=== PATIENT | male | born 1995 | race Caucasian/White ===

== ENCOUNTER 2017-06-19 12:14 | Emergency (ER) | payer OTHER ==
[~2017-06-19] VITALS: Ht 190.5 cm; Wt 86.2 kg
[~2017-06-19 12:14] MED LIST: PREDNISONE20 M1 PO; PROAIR HFA8.5 GM INH; ZITHROMAX250 M2 PO
[2017-06-19 12:18] VITALS: BP 130/77
[2017-06-19] MEDS ORDERED: PERMETHRIN60 GM TOP (13:03)
--- NOTE | 2017-06-19 13:05 | ED SKIN/ALLERGY COMPLAINT ---
History of Present Illness General Chief Complaint: Animal/Insect Bite Stated Complaint: ?INSECT BITE Source: patient, family Exam Limitations: no limitations Vital Signs & Intake/Output Vital Signs & Intake/Output Vital Signs Date Time Temp Pulse Resp B/P B/P Pulse O2 O2 Flow FiO2 Mean Ox Delivery Rate 06/19 1218 98.6 77 18 130/77 98 Room Air Allergies Coded Allergies: diphenhydramine (From BENADRYL) (Severe, ANAPHYLAXIS 10/21/16) Reconcile Medications Albuterol Sulfate (Proair Hfa) 90 MCG HFA.AER.AD 2 PUF INH Q4-6 PRN PRN WHEEZING Azithromycin (Zithromax) 250 MG TABLET 1 DP PO AD BRONCHITIS 2 the first day followed by 1 for days 2-5 Permethrin 5 % CREAM..G. 1 ROLANDO TOP ONCE BED BUGS massage into skin from head to soles of feet one time, leave on for 8-14 hours then remove by thorough washing REPEAT IN ONE WEEK IF STILL HAVING SYMPTOMS Prednisone 20 MG TABLET 2 TAB PO DAILY bronchitis Triage Note: 22 YO MALE TO TRIAGE C/O ?INSECT BITES ALL OVER BODY. STATES BITES ARE ITCHY. Triage Nurses Notes Reviewed? yes Onset: Gradual Duration: constant Timing: recent history Severity: severe Severity Numbers: 10 Location: generalized HPI: Patient is a 22-year-old male who presents to emergency room with concerns of bedbug exposure in which she states that for the last 2 days he has been living at his father's house where they had a gradual onset of generalized pruritic raised skin rash. Patient states that adjacent residents have known exposure to bedbugs. Denies any fever chills sore throat difficulty swallowing difficulty breathing tongue swelling lip swelling. Partner has similar symptoms (BETI VANG) Past History Travel History Traveled to [place] past 21 day No Medical History Any Pertinent Medical History? 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 No (BETI VANG) Review of Systems Review of Systems Constitutional: Reports: no symptoms. EENTM: Reports: no symptoms. Respiratory: Reports: no symptoms. Cardiovascular: Reports: no symptoms. GI: Reports: no symptoms. Genitourinary: Reports: no symptoms. Musculoskeletal: Reports: no symptoms. Skin: Reports: see HPI, rash. Neurological/Psychological: Reports: no symptoms. Hematologic/Endocrine: Reports: no symptoms. Immunologic/Allergic: Reports: no symptoms. All Other Systems: Reviewed and Negative (BETI VANG) Physical Exam Physical Exam General Appearance: no apparent distress, alert, comfortable Head: atraumatic Comments: Well-developed well-nourished person in no acute distress HEENT: Normal EENT exam, extraocular motion intact, no nystagmus. Pupils equally round and reactive to light and accommodation. Nose is atraumatic. External auditory canal and Tympanic membranes clear. Pharynx normal. No swelling or edema. Neck: Supple, no lymphadenopathy, normal range of motion without pain or tenderness Back: Nontender, no CVA tenderness. Respiratory: Chest nontender. No respiratory distress.breath sounds clear to auscultation bilaterally Extremity: No edema, no calf tenderness to palpation, normal and equal pulses. Neuro: Alert oriented x3, motor sensory normal, Skin: Noted generalized entire body of raised papules linear clustered rash with multiple excoriations Psych: Mood and affect is normal, memory and judgment is normal. (BETI VANG) Progress Differential Diagnosis: allergic reaction, anaphylaxis, angioedema, contact dermatitis, SCABIES, BED BUGS, LICE Plan of Care: No signs at this time of angioedema or anaphylaxis. Due to history of present illness and positive exposure contacts that patient most likely has bedbugs He was strongly to follow-up with discharge instructions and plan and they will comply (BETI VANG) Departure Departure Disposition: HOME OR SELF CARE Condition: Stable Clinical Impression Primary Impression: Bed bug bite Referrals: PATIENT HAS NO PRIMARY CARE DR (PCP/Family) Additional Instructions: As discussed begin the prescription OF permethrin as directed for your symptoms. Please wash all YOUR CLOTHERS the have been exposed to the suspecting insect bite. Symptoms worsen return to the emergency room. Follow-up to primary care doctor this week if no better. Repeat the permethrin as directed in the prescription. Departure Forms: Customer Survey General Discharge Information Prescriptions: Current Visit Scripts Permethrin 1 ROLANDO TOP ONCE #60 GM Ref 1 massage into skin from head to soles of feet one time, leave on for 8-14 hours then remove by thorough washing REPEAT IN ONE WEEK IF STILL HAVING SYMPTOMS (YOSELIN MICHAEL,BETI) PA/FOREST NURSERY SUPERVISOR Co-Sign Statement Statement: ED Attending supervision documentation- [] I saw and evaluated the patient. I have also reviewed all the pertinent lab results and diagnostic results. I agree with the findings and the plan of care as documented in the PA's/FOREST NURSERY SUPERVISOR's documentation. [X] I have reviewed the ED Record and agree with the PA's/FOREST NURSERY SUPERVISOR's documentation. [] Additions or exceptions (if any) to the PAs/FOREST NURSERY SUPERVISOR's note and plan are summarized below: [] (SCOTTY BLUNT,SORAYA)
== END 2017-06-19 13:16 ==
LOC: ERH 12:14
DX: S20.96XA Insect bite (nonvenomous) of unspecified parts of thorax, initial encounter (principal); W57.XXXA Bitten or stung by nonvenomous insect and other nonvenomous arthropods, initial encounter

== ENCOUNTER 2018-03-11 06:05 | Inpatient (IN) | payer OTHER ==
[~2018-03-11] VITALS: Ht 190.5 cm; Wt 90.7 kg
[~2018-03-11 06:05] MED LIST changes: +CIPRO500 M1 PO; +ERYTHROMYCIN1 GM OPH; +IBUPROFEN800 M1 PO; +KEFLEX500 M1 PO; +PERMETHRIN60 GM TOP
--- NOTE | 2018-03-11 06:20 | ED GENERAL ADULT ---
History of Present Illness General Chief Complaint: Eye Problems Stated Complaint: LT EYE SWOLLEN SHUT DENIES ASSAULT ? STRESS Source: patient Exam Limitations: no limitations Vital Signs & Intake/Output Vital Signs & Intake/Output Vital Signs Date Time Temp Pulse Resp B/P B/P Pulse O2 O2 Flow FiO2 Mean Ox Delivery Rate 03/11 0618 Room Air 03/11 614 97.2 60 18 112/73 96 Room Air Allergies Coded Allergies: diphenhydramine (From BENADRYL) (Severe, ANAPHYLAXIS 10/21/16) Reconcile Medications No Known Home Medications Triage Note: PT TO TRIAGE WITH L EYE SWOLLEN SHUT THAT PT STATES HE NOTICED UPON WAKING UP THIS MORNING. PER PT WAS PICKING AT [facility] YESTERDAY, DENIES GETTING HIT ETC.. Triage Nurses Notes Reviewed? yes Onset: Abrupt Duration: day(s): Timing: recent history HPI: 03/11/18 6:41 AM This is a 23-year-old male who presents to the emergency department for left eyes swelling. According to the patient he was in his usual state of health until last night when he was picking at a skin lesion on his face. This morning he woke up and his left eye was completely shut. He denies fever or other complaints. He denies any significant past medical history. He says that he is highly allergic to Benadryl and that his throat tightens when he takes Benadryl. No visual complaints. (Rogers Dial DO) Past History Travel History Traveled to [place] past 21 day No Medical History Any Pertinent Medical History? 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 No (Rogers Dial DO) Review of Systems Review of Systems Constitutional: Denies: fever. EENTM: Denies: visual changes. Respiratory: Denies: short of breath. Cardiovascular: Denies: chest pain. GI: Denies: abdominal pain. Genitourinary: Reports: no symptoms. Musculoskeletal: Reports: no symptoms. Skin: Reports: rash. Neurological/Psychological: Reports: no symptoms. Hematologic/Endocrine: Reports: no symptoms. Immunologic/Allergic: Reports: no symptoms. (Rogers Dial DO) Physical Exam Physical Exam General Appearance: awake, anxious, mild distress Head: swelling Eyes: Bilateral: PERRL, EOMI. Ears, Nose, Throat: normal pharynx Neck: supple, full range of motion Respiratory: no respiratory distress Cardiovascular: regular rate/rhythm Peripheral Pulses: 4+ radial (R), 4+ radial (L) Gastrointestinal: non-tender Back: normal range of motion Extremities: no edema Neurologic/Psych: no motor/sensory deficits, awake, alert, oriented x 3 Skin: rash Comments: The patient has a honey colored pustular rash on the left forehead and periorbital area. There is significant swelling to the left eyelid. Opening of the eyelid manually reveals a normal left eye. The extraocular muscles are intact. He denies any loss in visual acuity. Core Measures ACS in differential dx? No CVA/TIA Diagnosis: No Sepsis Present: No Sepsis Focused Exam Completed? No (Rogers Dial DO) Progress Differential Diagnoses I considered the following diagnoses in my evaluation of the patient: Periorbital, orbital cellulitis, abscess] Plan of Care: Orders Procedure Date/time Status Regular Diet 03/11 L Active ED Holding Orders 03/11 0855 Active Admit to inpatient 03/11 0855 Active Vital Signs 03/11 0855 Active Code Status 03/11 0855 Active Saline Lock 03/11 0630 Active COMPREHENSIVE METABOLIC PANEL 03/11 0630 Complete CBC WITHOUT DIFFERENTIAL 03/11 0630 Complete Current Medications Sig/Carmelo Start time Last Medication Dose Stop Time Status Admin Clindamycin 600 MG IQ8 03/11 0800 UNVr 03/11 (Cleocin) 0650 Dextrose/Water 50 ML (D5W) Laboratory Tests 03/11/18 0646: Anion Gap 12, Estimated GFR > 60, BUN/Creatinine Ratio 17.8, Glucose 94, Calcium 9.6, Total Bilirubin 0.7, AST 19, ALT 21, Alkaline Phosphatase 55, Total Protein 7.5, Albumin 4.8, Globulin 2.7, Albumin/Globulin Ratio 1.8, CBC w Diff NO MAN DIFF REQ, RBC 5.22, MCV 87.6, MCH 30.3, MCHC 34.6, RDW 12.7, MPV 7.6, Gran % 80.3 H, Lymphocytes % 11.2 L, Monocytes % 6.8, Eosinophils % 1.1, Basophils % 0.6, Absolute Granulocytes 12.4 H, Absolute Lymphocytes 1.7, Absolute Monocytes 1.1 H, Absolute Eosinophils 0.2, Absolute Basophils 0.1 Initial ED EKG: none (Rogers Dial DO) Diagnostic Imaging: Viewed by Me: CT Scan. Discussed w/RAD: CT Scan. Radiology Impression: PATIENT: LEIDA BATEMAN JR PRESENT AGE: 23 PATIENT ACCOUNT NO: [id number] : 93 LOCATION: [facility] ORDERING PHYSICIAN: Rogers Dial DO SERVICE DATE: 03/11/18 EXAM TYPE: CAT - CT ORBITS WO IV CONTRAST EXAMINATION: CT ORBIT WITHOUT CONTRAST CLINICAL INFORMATION: Left periorbital cellulitis COMPARISON: Head CT 01/18/2011 TECHNIQUE: Multidetector volumetric imaging of the orbits was performed without IV contrast. Coronal and sagittal reformatted images were obtained and reviewed. DLP: 267 mGy-cm FINDINGS: There is prominent left periorbital soft tissue swelling, extending along the left frontal bone region. There is no inflammation in the retrobulbar fat. No post septal inflammation. The globes are intact and symmetric. Extraocular muscles are intact. No maxillofacial fracture. The pterygoid plates are intact. The lamina papyracea are intact. The zygomatic arches are intact. The orbital rims are intact. The temporal mandibular joints are appropriately aligned. The paranasal sinuses are well aerated. There is rightward deviation of the nasal septum. The mastoid air cells are well aerated. The visualized intracranial structures are unremarkable. IMPRESSION: Prominent left periorbital soft tissue swelling. There is no extension of inflammation into the post septal or retrobulbar fat. The orbit is maintained. DICTATED BY: Rosales Ovalle MD DATE/TIME DICTATED:03/11/18652 PATTERN WEAVER: DIANA DATE/TIME TRANSCRIBED:03/11/18652 CONFIDENTIAL, DO NOT COPY WITHOUT APPROPRIATE AUTHORIZATION. <Electronically signed in Other Vendor System> SIGNED BY: Rosales Ovalle MD 03/11/18 0658 (Autumn BLUNT,Nish Ortiz) Departure Departure Disposition: STILL A PATIENT Condition: Stable Clinical Impression Primary Impression: Periorbital cellulitis Secondary Impressions: Periorbital cellulitis of left eye Referrals: Patient Has No Primary Care Dr (PCP/Family) Departure Forms: Customer Survey General Discharge Information Prescriptions: Current Visit Scripts No Known Home Medications Comments 03/11/18 Patient signed out to Dr. Leyva at 7 AM (Rogers Dial DO) Admission Note Spoke With: David BLUNT,Krysta Documentation of Exam: Documentation of any treatments & extenuating circumstances including Concerns Regarding Discharge (functional status, medication knowledge or non-compliance, living conditions, etc.) that warrant an admission rather than observation: [IV antibiotics, consider optimal consult if symptoms worsen, high risk to develop orbital cellulitis if he is discharged shortly.] (Autumn BLUNT,Nish Ortiz) Critical Care Note Critical Care Note Critical Care Time: non-applicable (Rogers Dial DO)
[2018-03-11 06:58] LABS: ABSOLUTE BASOPHIL COUNT 0.1 /CUMM (0.0-0.2); ABSOLUTE EOSINOPHIL COUNT 0.2 /CUMM (0.0-0.7); ABSOLUTE GRANULOCYTE CT 12.4 /CUMM (1.4-6.5); ABSOLUTE LYMPH COUNT 1.7 /CUMM (1.2-3.4); ABSOLUTE MONOCYTE COUNT 1.1 /CUMM (0.10-0.60); BASOPHIL % 0.6 % (0.0-2.0); EOSINOPHIL % 1.1 % (0-5); GRANULOCYTE % 80.3 % (42.2-75.2); HEMATOCRIT 45.8 % (42-52); MEAN CORPUSCULAR HGB 30.3 PG (27.0-31.0); MEAN CORPUSCULAR HGB CONC 34.6 G/DL (33.0-37.0); MEAN CORPUSCULAR VOLUME 87.6 FL (80.0-94.0); MEAN PLATELET VOLUME 7.6 FL (7.4-10.4); PLATELET COUNT 265 /CUMM (130-400); RBC DISTRIBUTION WIDTH 12.7 % (11.5-14.5); RED BLOOD CELL CT 5.22 /CUMM (4.70-6.10); WHITE BLOOD CELL COUNT 15.5 /CUMM (4.8-10.8)
--- NOTE | 2018-03-11 06:58 | CT SCAN REPORT ---
EXAMINATION: CT ORBIT WITHOUT CONTRAST CLINICAL INFORMATION: Left periorbital cellulitis COMPARISON: Head CT 01/18/2011 TECHNIQUE: Multidetector volumetric imaging of the orbits was performed without IV contrast. Coronal and sagittal reformatted images were obtained and reviewed. DLP: 267 mGy-cm FINDINGS: There is prominent left periorbital soft tissue swelling, extending along the left frontal bone region. There is no inflammation in the retrobulbar fat. No post septal inflammation. The globes are intact and symmetric. Extraocular muscles are intact. No maxillofacial fracture. The pterygoid plates are intact. The lamina papyracea are intact. The zygomatic arches are intact. The orbital rims are intact. The temporal mandibular joints are appropriately aligned. The paranasal sinuses are well aerated. There is rightward deviation of the nasal septum. The mastoid air cells are well aerated. The visualized intracranial structures are unremarkable. IMPRESSION: Prominent left periorbital soft tissue swelling. There is no extension of inflammation into the post septal or retrobulbar fat. The orbit is maintained.
--- NOTE | 2018-03-11 08:57 | History & Physical ---
Bryan Leigh 03/11/18 0857: General Information and HPI MD Statement: I have seen and personally examined LEIDA BATEMAN and documented this H&P. The patient is a 23 year old M who presented with a patient stated chief complaint of left eye swelling. Source of Information: patient Exam Limitations: no limitations History of Present Illness: 23 year old gentlemen current smoker (7 pack years) and marijuana user, no significant past medical history, not regular medications, came to ED for evaluation of left eye swelling of one day duration. Patient was in his usual health day before yesterday. He has been moving into a new place since the past 3-4 days. He noticed a slight erythematous rash on the left temporal aspect of his forehead yesterday and this morning when he woke up P found that his left eye was swollen shut and he was unable to open them. Endorses pain on palpation. He denies any vision loss, recent tooth or ear infection, trauma, insect bites, recent travel, fever, chills, previous similar episodes,IVDU, headaches or pain on moving the eyes. He moved into the new place yesterday and slept on his own sheets in own bed. States that there are no insects as spiders that he noticed where he was staying at. 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 Home Smoking Status: Current Everyday Smoker ETOH Use: denies use Employment History Employment Employed Review of Systems Review of Systems Constitutional: Denies: chills, diaphoresis, fever, malaise, weakness, unexplained weight loss. Cardiovascular: Denies: chest pain, edema, orthopena, palpitations, peripheral edema, syncope. Respiratory: Denies: cough, hemoptysis, orthopnea, short of breath, sputum production, stridor, wheezing. GI: Denies: abdominal pain, bloating, constipation, diarrhea, distention, bowel incontinence, melena, nausea, bloody stool, changes in stool, vomiting, steatorrhea. Genitourinary: Denies: discharge, dysuria, frequency, hematuria, hesitation, nocturia, pain, urgency. Exam & Diagnostic Data Last 24 Hrs of Vital Signs/I&O Vital Signs Date Time Temp Pulse Resp B/P B/P Pulse O2 O2 Flow FiO2 Mean Ox Delivery Rate 03/11 1358 98.5 63 20 120/80 99 03/11 1100 97.6 64 20 120/70 96 Room Air 03/11 1013 97.6 72 18 127/67 97 Room Air 03/11 0618 Room Air 03/11 0614 97.2 60 18 112/73 96 Room Air Intake & Output 03/11 1600 03/11 0800 03/11 0000 Intake Total 500 0 Output Total Balance 500 0 Intake, Oral 500 0 Patient 200 lb 200 lb Weight Weight Reported by Patient Measurement Method Physical Exam General Appearance Alert, Oriented X3, Cooperative, No Acute Distress Skin non raised erthymatous rash on left temporal region Skin Temp/Moisture Exam: Warm/Dry Sepsis Skin Exam (color): Normal for Ethnicity HEENT Atraumatic, EOMI, prominent left eye swelling, mild increased warmth noted Neck Supple Lymphatic Cervical nl Cardiovascular Regular Rate, Normal S1, Normal S2 Lungs Clear to Auscultation Abdomen Normal Bowel Sounds, Soft, No Tenderness Extremities No Edema Diagnostic Data Other Results CT ORBITS WO IV CONTRAST FINDINGS: There is prominent left periorbital soft tissue swelling, extending along the left frontal bone region. There is no inflammation in the retrobulbar fat. No post septal inflammation. The globes are intact and symmetric. Extraocular muscles are intact. No maxillofacial fracture. The pterygoid plates are intact. The lamina papyracea are intact. The zygomatic arches are intact. The orbital rims are intact. The temporal mandibular joints are appropriately aligned. The paranasal sinuses are well aerated. There is rightward deviation of the nasal septum. The mastoid air cells are well aerated. The visualized intracranial structures are unremarkable. IMPRESSION: Prominent left periorbital soft tissue swelling. There is no extension of inflammation into the post septal or retrobulbar fat. The orbit is maintained. Assessment/Plan Assessment: 23 year old gentlemen current smoker (7 pack years) and marijuana user, no significant past medical history, not regular medications, here for left eye swelling. Assessment: Likely preseptal orbital cellulitis based on imaging as well as ROS neg for vision loss, pain on eye movement. Problem list: Preseptal orbital cellulitis Smoking Plan: Admit to general medicine floor, vitals per protocol Continue with clindamycin pending blood cultures, if no improvement noted over 24 hours can broaden coverage to vancomycin and ceftriaxone Nicotine patch Pain control with Tylenol for mild pain and tramadol for moderate Regular diet DVT prophylaxis with subcutaneous Lovenox Full code As Ranked By This Provider Problem List: 1. Periorbital cellulitis of left eye Core Measures/Misc (08/07) Acute Coronary Syndrome ACS Diagnosis: No Congestive Heart Failure Congestive Heart Failure Diagnosis No Cerebrovascular Accident CVA/TIA Diagnosis: No VTE (View Protocol) VTE Risk Factors Smoker No Mechanical VTE Prophylaxis d/t N/A MechProphylax Ordered No VTE Pharm Prophylaxis d/t NA PharmProphylax ordered Sepsis (View protocol) Sepsis Present: No Krysta Hernandez MD 03/11/18 1451: Attending MD Review Statement Attending Statement Attending MD Statement: examined this patient, discuss w/resident/PA/RADIOTELEGRAPHER, agreed w/resident/PA/RADIOTELEGRAPHER, reviewed EMR data (avail), discussed with nursing, reviewed images, amended to note Attending Assessment/Plan: 23-year-old male with past medical history significant for migraine headaches, ADHD who presented with left eye swelling and some erythema. Patient claims that there was a pimple above the left eyebrow that he noticed yesterday and then overnight his eye got swollen. This morning his eye was shut and he wasn't able to open the eye. It is also painful to touch. Patient denies any effect on his vision. He denies any fevers or chills. In the emergency room his CAT scan of the head and orbit shows Prominent left periorbital soft tissue swelling. There is no extension of inflammation into the post septal or retrobulbar fat. The orbit is maintained. Patient received clindamycin in the emergency room. Vital Signs Date Time Temp Pulse Resp B/P B/P Pulse O2 O2 Flow FiO2 Mean Ox Delivery Rate 03/11 1358 98.5 63 20 120/80 99 03/11 1100 97.6 64 20 120/70 96 Room Air 03/11 1013 97.6 72 18 127/67 97 Room Air 03/11 0618 Room Air 03/11 0614 97.2 60 18 112/73 96 Room Air on exam; aox3, nad. heent; left eye with sever swelling, above the left eye [place] there is some discoloration of skin with darkening, Mild erythema also. cv; s1,s2, rrr resp; clear abd; soft, nt, bs+ ext; no edema Laboratory Tests 03/11 0646 Chemistry Sodium (137 - 145 mmol/L) 140 Potassium (3.5 - 5.1 mmol/L) 3.7 Chloride (98 - 107 mmol/L) 103 Carbon Dioxide (22 - 30 mmol/L) 26 Anion Gap (5 - 16) 12 BUN (9 - 20 mg/dL) 16 Creatinine (0.7 - 1.2 mg/dL) 0.9 Estimated GFR (>60 ml/min) > 60 BUN/Creatinine Ratio (7 - 25 %) 17.8 Glucose (65 - 99 mg/dL) 94 Calcium (8.4 - 10.2 mg/dL) 9.6 Total Bilirubin (0.2 - 1.3 mg/dL) 0.7 AST (17 - 59 U/L) 19 ALT (21 - 72 U/L) 21 Alkaline Phosphatase (< 127 U/L) 55 Total Protein (6.3 - 8.2 g/dL) 7.5 Albumin (3.5 - 5.0 g/dL) 4.8 Globulin (1.9 - 4.2 gm/dL) 2.7 Albumin/Globulin Ratio (1.1 - 2.2 %) 1.8 Hematology CBC w Diff NO MAN DIFF REQ WBC (4.8 - 10.8 /CUMM) 15.5 H RBC (4.70 - 6.10 /CUMM) 5.22 Hgb (14.0 - 18.0 G/DL) 15.8 Hct (42 - 52 %) 45.8 MCV (80.0 - 94.0 FL) 87.6 MCH (27.0 - 31.0 PG) 30.3 MCHC (33.0 - 37.0 G/DL) 34.6 RDW (11.5 - 14.5 %) 12.7 Plt Count (130 - 400 /CUMM) 265 MPV (7.4 - 10.4 FL) 7.6 Gran % (42.2 - 75.2 %) 80.3 H Lymphocytes % (20.5 - 51.1 %) 11.2 L Monocytes % (1.7 - 9.3 %) 6.8 Eosinophils % (0 - 5 %) 1.1 Basophils % (0.0 - 2.0 %) 0.6 Absolute Granulocytes (1.4 - 6.5 /CUMM) 12.4 H Absolute Lymphocytes (1.2 - 3.4 /CUMM) 1.7 Absolute Monocytes (0.10 - 0.60 /CUMM) 1.1 H Absolute Eosinophils (0.0 - 0.7 /CUMM) 0.2 Absolute Basophils (0.0 - 0.2 /CUMM) 0.1 CT head and orbit: Prominent left periorbital soft tissue swelling. There is no extension of inflammation into the post septal or retrobulbar fat. The orbit is maintained. A/P; 23-year-old male with past history significant for migraine headaches, ADHD who is admitted with periorbital cellulitis. We will follow-up on the blood cultures. Patient was given clindamycin in the emergency room which we can continue for now. Pain controlled with Tylenol or ibuprofen. DVT px: Lovenox. Patient is a full code. Elizabeth Muniz MD,[facility] 03/11/18 1808: Addendum Note Addendum At 6 pm, nursing called patient wants to leave AMA Patient was admitted with preseptal cellutlits, planned to recieve IV antibiotics Explained the critical condition to patient, that could lead to loosing his eye, patient noted to be anxious, wanted to smoke. Nicotin replacement offered, xanax 0.5 mg administered for anxiety
[2018-03-11 11:00] VITALS: BP 120/70
[2018-03-11 13:58] VITALS: BP 120/80
[2018-03-11 22:15] VITALS: BP 110/66
[2018-03-12 06:20] VITALS: BP 110/58
--- NOTE | 2018-03-12 07:32 | PN- Housestaff ---
Elizabeth Muniz MD,Ami 03/12/18 0732: Subjective Follow-up For: preorbital cellulitis Subjective: Patient visited today, improved swelling of the left eye. patient stable to be discahrged on oral antibiotics Review of Systems Constitutional: Reports: see HPI. Objective Last 24 Hrs of Vital Signs/I&O Vital Signs Date Time Temp Pulse Resp B/P B/P Pulse O2 O2 Flow FiO2 Mean Ox Delivery Rate 03/12 06 98.7 51 18 110/58 95 Room Air 03/11 2215 98.5 50 18 110/66 96 Room Air 03/11 1358 98.5 63 20 120/80 99 Intake & Output 03/12 1600 03/12 0800 03/12 0000 Intake Total 100 200 Output Total Balance 100 200 Intake, Oral 100 200 Physical Exam General Appearance: Alert, Oriented X3, Cooperative, No Acute Distress Skin Temp/Moisture Exam: Warm/Dry Sepsis Skin Exam (color): Normal for Ethnicity HEENT: Atraumatic, LEft eye, swelling, improved, IOP no pain Cardiovascular: Normal S1, Normal S2 Lungs: Clear to Auscultation, Normal Air Movement Abdomen: Soft, No Tenderness Current Medications: Current Medications Sig/Carmelo Start time Last Medication Dose Route Stop Time Status Admin Acetaminophen 650 MG Q4P PRN 03/11 1545 AC 03/11 PO 2108 Alprazolam 0.5 MG ONCE ONE 03/11 1815 DC 03/11 PO 03/11 1816 1824 Ceftriaxone Sodium 2,000 MG DAILY@1200 03/11 1200 DC 03/11 IV 1136 Clindamycin 600 MG IQ8 03/12 0800 AC 03/12 Dextrose/Water 50 ML IV 0929 Enoxaparin Sodium 40 MG DAILY 03/12 0900 AC SC Melatonin 5 MG AT BEDTIME 03/11 2100 AC 03/11 PO 2106 Nicotine 21 MG DAILY 03/11 1055 AC 03/11 TOP 1135 Tramadol HCl 50 MG Q6 03/11 1200 AC 03/12 PO 0644 Vancomycin HCl 1,000 MG Q12H 03/11 1200 DC Dextrose/Water 250 ML IV Vancomycin HCl 1,000 MG Q12H 03/11 1130 DC 03/11 Sodium Chloride 250 ML IV 1141 Last 24 Hrs of Lab/Dakota Results Last 24 Hrs of Labs/Mics: Laboratory Tests 03/12/18 0800: Anion Gap 12, Estimated GFR > 60, BUN/Creatinine Ratio 12.0, CBC w Diff NO MAN DIFF REQ, RBC 5.18, MCV 88.3, MCH 30.1, MCHC 34.1, RDW 13.1, MPV 8.1, Gran % 54.0, Lymphocytes % 30.7, Monocytes % 9.5 H, Eosinophils % 5.1 H, Basophils % 0.7, Absolute Granulocytes 3.4, Absolute Lymphocytes 2.0, Absolute Monocytes 0.6 , Absolute Eosinophils 0.3, Absolute Basophils 0 Microbiology 03/11 1545 BLOOD: Blood Culture - RECD 03/11 152 BLOOD: Blood Culture - RECD Assessment/Plan Assessment: 23 year old gentlemen current smoker (7 pack years) and marijuana user, no significant past medical history, not regular medications, here for left eye swelling. Assessment: Likely preseptal orbital cellulitis based on imaging as well as ROS neg for vision loss, pain on eye movement. Patient was admitted to general medicine floor, IV antibiotic treatment with vancomycin was administered. Blood cultures remain to be negative. There was significant improvement in patient's swelling erythema and pain. Patient was considered to be stable to be discharged. Oral clindamycin was administered to complete 7 day course. Problem List: 1. Periorbital cellulitis Pain Ratin Pain Location: None Pain Goal: Pain 4 or less Pain Plan: Tynelol PRN after discharge Tomorrow's Labs & Rationales: None Krytsa Hernandez MD 03/12/18 1214: Attending MD Review Statement Attending Statement Attending MD Statement: examined this patient, discuss w/resident/PA/COTTON BALL BAGGER, agreed w/resident/PA/COTTON BALL BAGGER, discussed with family, reviewed EMR data (avail), discussed with nursing, discussed with case mgmt, reviewed images, amended to note Attending Assessment/Plan: Patient seen and examined, overall doing much better. The left eye is much less swollen and he is able to open the eye without any problem. Denies any difficulty with vision. Patient remained afebrile. Blood cultures so far remain negative. Patient was started on IV clindamycin and seemed that that he had responded well. Patient wants to go home. Clinically he has improved therefore we can switch his antibiotics to oral. Patient will be discharged home on oral clindamycin to complete a total of seven-day course. He should follow-up with his primary care doctor as an outpatient.
[2018-03-12 09:17] LABS: ABSOLUTE BASOPHIL COUNT 0 /CUMM (0.0-0.2); ABSOLUTE EOSINOPHIL COUNT 0.3 /CUMM (0.0-0.7); ABSOLUTE GRANULOCYTE CT 3.4 /CUMM (1.4-6.5); ABSOLUTE MONOCYTE COUNT 0.6 /CUMM (0.10-0.60); BASOPHIL % 0.7 % (0.0-2.0); EOSINOPHIL % 5.1 % (0-5); HEMATOCRIT 45.7 % (42-52); MEAN CORPUSCULAR HGB 30.1 PG (27.0-31.0); MEAN CORPUSCULAR HGB CONC 34.1 G/DL (33.0-37.0); MEAN CORPUSCULAR VOLUME 88.3 FL (80.0-94.0); MEAN PLATELET VOLUME 8.1 FL (7.4-10.4); PLATELET COUNT 243 /CUMM (130-400); RBC DISTRIBUTION WIDTH 13.1 % (11.5-14.5); RED BLOOD CELL CT 5.18 /CUMM (4.70-6.10)
[2018-03-12 10:04] LABS: WHITE BLOOD CELL COUNT 6.4 /CUMM (4.8-10.8)
--- NOTE | 2018-03-12 11:59 | Discharge Summary ---
Hospital Course Allergies: Coded Allergies: diphenhydramine (From BENADRYL) (Severe, ANAPHYLAXIS 10/21/16)
--- NOTE | 2018-03-12 12:03 | Patient Discharge Instructions ---
Discharge Instructions General Discharge Information You were seen/treated for: Periorbital cellulitis Watch for these problems: Increased swelling, pain, erythema, fever, or worsening of any other symptoms. Please also note for any change in your ability to see Special Instructions: Please follow with your PCP within one week of discharge. Please complete the course of antibiotics. Please come back to hospital if symptoms worsen Diet Continue normal diet: Yes Activity Full Activity/No Limits: No Activity Self Limited: Yes Acute Coronary Syndrome Inclusion Criteria At DC or during hospital stay patient has or had the following: ACS DIAGNOSIS No Discharge Core Measures Meds if any: Prescribed or Continued at Discharge Meds if any: NOT Prescribed or Continued at Discharge Congestive Heart Failure Inclusion Criteria At DC or during hospital stay patient has or had the following: CHF DIAGNOSIS No Discharge Core Measures Meds if any: Prescribed or Continued at Discharge Meds if any: NOT Prescribed or Continued at Discharge Cerebrovascular accident Inclusion Criteria At DC or during hospital stay patient has or had the following: CVA/TIA Diagnosis No Discharge Core Measures Meds if any: Prescribed or Continued at Discharge Antithrombotic No Statin (required if LDL =>70) No Meds if any: NOT Prescribed or Continued at Discharge Venous thromboembolism Inclusion Criteria VTE Diagnosis No VTE Type NONE VTE Confirmed by (Test) NONE Discharge Core Measures - Per Current guidelines, there needs to be overlap - treatment for the first 5 days of Warfarin therapy. - If discharged on Warfarin prior to 5 days of - overlap therapy, the patient will need to be - assessed for post discharge needs including - *Post discharge parental anticoagulation - *Warfarin and/or parental anticoagulation education - *Follow up date to check INR post discharge At least 5 days overlap therapy as Inpatient No Meds if any: Prescribed or Continued at Discharge Note: Overlap Therapy is Warfarin and Anticoagulant Meds if any: NOT Prescribed or Continued at Discharge
[2018-03-12] MEDS ORDERED: CLINDAMYCIN HC300 M1 PO (12:04)
[2018-03-12] MEDS ORDERED: PROBIOTIC1 EACH PO (12:06)
== END 2018-03-12 12:30 | DRG 383 ==
LOC: ERH 06:05 → ERHI 08:55 → ENRESERV 09:50 → ENTRNSPT 10:32 → EDTRNSPTSTS 10:33 → EDTRNSPT 10:33 → 2NA 10:57 → CMPTRNSPT 11:03 → ENPENDDIS 03-12 12:06 → 2NA 03-12 12:30
PROVIDERS: Emergency Medicine; Internal Medicine
DX: L03.213 Periorbital cellulitis (principal); F17.200 Nicotine dependence, unspecified, uncomplicated; F12.90 Cannabis use, unspecified, uncomplicated; F90.9 Attention-deficit hyperactivity disorder, unspecified type; G43.909 Migraine, unspecified, not intractable, without status migrainosus; F41.9 Anxiety disorder, unspecified
CPT/HCPCS: 2NAP; 36592; 82436; 87040; J0696; J1650; J3370; J7040; J7060

== ENCOUNTER 2018-03-27 09:40 | Emergency (ER) | payer OTHER ==
[~2018-03-27] VITALS: Ht 190.5 cm; Wt 90.7 kg
[~2018-03-27 09:40] MED LIST changes: +CLINDAMYCIN HC300 M1 PO; +PROBIOTIC1 EACH PO
[2018-03-27 09:49] VITALS: BP 147/94
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
== END 2018-03-27 12:51 | disposition admitted as inpatient to this hospital (09) ==
LOC: ERH 09:40
DX: J02.9 Acute pharyngitis, unspecified (principal)
CPT/HCPCS: 99281

== ENCOUNTER 2018-03-27 14:21 | Emergency (ER) | payer OTHER ==
[~2018-03-27] VITALS: Ht 190.5 cm; Wt 90.7 kg
[2018-03-27 14:48] VITALS: BP 137/91
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
[2018-06-02] MEDS ORDERED: AUGMENTIN 875-1 EACH PO (23:49)
[2018-06-03] MEDS ORDERED: NARCAN4 MG NAS (02:25)
== END 2018-03-27 15:34 ==
LOC: ERH 14:21
DX: J02.9 Acute pharyngitis, unspecified (principal); F17.210 Nicotine dependence, cigarettes, uncomplicated
CPT/HCPCS: J1100

== ENCOUNTER 2018-05-18 23:09 | Emergency (ER) | payer OTHER ==
[~2018-05-18] VITALS: Ht 188 cm; Wt 90.7 kg
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
[2018-05-19 00:50] LABS: ABSOLUTE BASOPHIL COUNT 0 /CUMM (0.0-0.2); ABSOLUTE EOSINOPHIL COUNT 0.1 /CUMM (0.0-0.7); ABSOLUTE GRANULOCYTE CT 8.2 /CUMM (1.4-6.5); ABSOLUTE LYMPH COUNT 1.8 /CUMM (1.2-3.4); ABSOLUTE MONOCYTE COUNT 0.8 /CUMM (0.10-0.60); BASOPHIL % 0.3 % (0.0-2.0); EOSINOPHIL % 1.1 % (0-5); GRANULOCYTE % 74.6 % (42.2-75.2); HEMATOCRIT 47.4 % (42-52); MEAN CORPUSCULAR HGB 30.6 PG (27.0-31.0); MEAN CORPUSCULAR HGB CONC 34.2 G/DL (33.0-37.0); MEAN CORPUSCULAR VOLUME 89.4 FL (80.0-94.0); MEAN PLATELET VOLUME 7.4 FL (7.4-10.4); PLATELET COUNT 266 /CUMM (130-400); RBC DISTRIBUTION WIDTH 14.1 % (11.5-14.5)
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
[2018-05-19 09:52] VITALS: BP 112/82
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
== END 2018-05-19 09:54 ==
LOC: ERH 23:09
PROVIDERS: Emergency Medicine
DX: F14.10 Cocaine abuse, uncomplicated (principal); F11.10 Opioid abuse, uncomplicated; F16.10 Hallucinogen abuse, uncomplicated; F13.10 Sedative, hypnotic or anxiolytic abuse, uncomplicated; F12.10 Cannabis abuse, uncomplicated; R45.851 Suicidal ideations; F32.9 Major depressive disorder, single episode, unspecified
CPT/HCPCS: 80307; 93005; 93010; 96372; 99291; G0480; J1630